=== PATIENT | male | born 1970 | race Caucasian/White ===

== ENCOUNTER 2018-04-06 11:41 | Emergency (ER) | payer OTHER ==
[~2018-04-06] VITALS: Ht 170.2 cm; Wt 70.3 kg
[~2018-04-06 11:41] MED LIST: HYDROCODONE-AP1 EAC6 PO; MEDROLDOSEPACK PO
[2018-04-06 13:27] LABS: URINE BILIRUBIN NEGATIVE (Negative); URINE BLOOD NEGATIVE (Negative); URINE CLARITY CLEAR; URINE COLOR YELLOW; URINE GLUCOSE-RANDOM NEGATIVE (Negative); URINE KETONES NEGATIVE (Negative); URINE LEUKOCYTES NEGATIVE (Negative); URINE NITRITE NEGATIVE (Negative); URINE PROTEIN NEGATIVE (Negative); URINE SPECIFIC GRAVITY 1.015 (1.005-1.030); URINE UROBILINOGEN 0.2 E.U./dl (0.2-1.0)
[2018-04-06] MEDS ORDERED: NORCO 5-325 TA1 EACH PO (13:59)
[2018-04-06 14:12] VITALS: BP 123/79
== END 2018-04-06 14:13 | disposition home or self-care (01) ==
LOC: M.ERS 11:41
PROVIDERS: Physician Assistant Surgical
DX: S73.101A Unspecified sprain of right hip, initial encounter (principal); S33.5XXA Sprain of ligaments of lumbar spine, initial encounter; V03.00XA Pedestrian on foot injured in collision with car, pick-up truck or van in nontraffic accident, initial encounter; Y93.89 Activity, other specified; Y92.89 Other specified places as the place of occurrence of the external cause; Y99.8 Other external cause status; Z88.8 Allergy status to other drugs, medicaments and biological substances